=== PATIENT | female | born 2000 | race Caucasian/White ===

== ENCOUNTER → 2020-08-29 09:08 | Outpatient (BNVA) | payer OTHER, SELFPAY | PROVIDERS: Visit Provider Advanced Practice Midwife | DX: Z34.80 Encounter for supervision of other normal pregnancy, unspecified trimester (principal) | CPT/HCPCS: 99211 ==

== ENCOUNTER 2020-09-06 14:39 | Emergency (ER) | payer OTHER, SELFPAY ==
[2020-09-06 14:52] VITALS: BP 125/59; PULSE 88; RESP 16; TEMP 37.5; O2SAT 98; BMI 38.3
[2020-09-06 14:56] VITALS: BP 125/59; PULSE 85; RESP 16; TEMP 37.5; O2SAT 97
--- NOTE | 2020-09-06 15:00 | US_ITS ---
EXAMINATION: OBSTETRIC ULTRASOUND - FIRST TRIMESTER CLINICAL INFORMATION: Vaginal bleeding. 9 weeks by last menstrual period. COMPARISON: None TECHNIQUE: Transabdominal and transvaginal imaging of the uterus was performed utilizing mora scale and color doppler technique, with m-mode imaging. FINDINGS: There is an intrauterine gestational sac present with a mean sac diameter of 1.51 cm corresponding to gestational age of 6 weeks, 3 days. A yolk sac is present within the gestational sac, however no pole is yet identified. No cardiac activity. No perigestational hemorrhage. Ovaries normal in size and appearance measuring 2.3 x 2.3 x 3.1 cm on the right and 2.0 x 1.6 x 1.8 cm on the left. No free fluid. US/US OB transvaginal IMPRESSION: * Intrauterine gestational sac present with mean sac diameter corresponding to a gestational age of 6 weeks, 3 days. At this size, a pole should be detected, and the findings are suspicious for failure but not definitive. Correlate with hCG levels and short interval follow-up. * No perigestational hemorrhage.
--- NOTE | 2020-09-06 15:00 | US_ITS ---
EXAMINATION: OBSTETRIC ULTRASOUND - FIRST TRIMESTER CLINICAL INFORMATION: Vaginal bleeding. 9 weeks by last menstrual period. COMPARISON: None TECHNIQUE: Transabdominal and transvaginal imaging of the uterus was performed utilizing mora scale and color doppler technique, with m-mode imaging. FINDINGS: There is an intrauterine gestational sac present with a mean sac diameter of 1.51 cm corresponding to gestational age of 6 weeks, 3 days. A yolk sac is present within the gestational sac, however no pole is yet identified. No cardiac activity. No perigestational hemorrhage. Ovaries normal in size and appearance measuring 2.3 x 2.3 x 3.1 cm on the right and 2.0 x 1.6 x 1.8 cm on the left. No free fluid. US/US OB <= 14 weeks fetus IMPRESSION: * Intrauterine gestational sac present with mean sac diameter corresponding to a gestational age of 6 weeks, 3 days. At this size, a pole should be detected, and the findings are suspicious for failure but not definitive. Correlate with hCG levels and short interval follow-up. * No perigestational hemorrhage.
--- NOTE | 2020-09-06 15:14 | ED.PREGNANCY ---
HPI - General Chief complaint: Vaginal Bleeding Stated complaint: multiple symptoms Time Seen by Provider: 09/06/20 14:59 Source: patient Mode of arrival: ambulatory Limitations: no limitations History of Present Illness HPI Narrative: 20 y/o female who is 9 weeks gestation presenting with painless vaginal bleeding that started yesterday. She states it started as only mild pink blood on the toilet paper when she wipes but this morning it progressed to a few small clots. She states she had the same presentation with her previous at 3 months gestation and it self-resolved. She has been getting care. No history of miscarriage or . No pelvic pain, abdominal pain, cramping, urinary symptoms or vaginal discharge. MD Complaint: vaginal bleeding Onset (ago): day(s) (1) Pain Consistency: intermittent Severity: mild Associated symptoms: nausea, vomiting and vaginal bleeding Vaginal discharge: none Vaginal bleeding: light and clots Patient : Yes Expected Date of Delivery: 04/11/21 OB History - Current : no complications OB History - Previous Pregnancies: other (bleeding in the 1st trimester) care: followed by OB Related Data : 3 Para: 2 Total number of abortions (spontaneous and elective): 0 Previous Rx's Medication Instructions Recorded vitamin with calcium 1 tab PO DAILY #30 tab 08/29/20 no.72-iron 27 mg-folic acid 1 mg tablet Allergies Allergy/AdvReac Type Severity Reaction Status Date / Time No Known Allergies Allergy Verified 09/06/20 14:52 [No Known Allergies*] Review of Systems Review of Systems: Constitutional: No Fever, No Chills ENT/Mouth: + sore throat, No Rhinorrhea Eyes: No Eye Pain, No Swelling, No Redness Cardiovascular: No Chest Pain, No SOB, No Orthopnea, No Edema Respiratory: No Cough, No Sputum, No Wheezing, No dyspnea Gastrointestinal: + Nausea,+ Vomiting, No Diarrhea, No abdominal Pain, No Hematochezia, No Melena Genitourinary: No Dysuria, No Urinary Frequency, No Hematuria, +vaginal bleeding Musculoskeletal: No joint pain, No Myalgias Skin: No Skin Lesions, No rash Heme/Lymph: No Bruising, No Lymphadenopathy Endocrine: No Polyuria, No Polydipsia PMFSH Past Medical History Attestation statement: The following information was validated with the patient. Medical History No known health problems : 3 Para: 2 Total number of abortions (spontaneous and elective): 0 Social History Social History Smoking Status: Never smoker Use of substances other than those prescribed or required for medical reasons: No Advance Directives: No Advance Directives Information Provided: Yes Physical Exam Vital Signs: Vital Signs: Last Vital Signs Temp 99.5 F 09/06/20 14:56 Pulse 85 09/06/20 14:56 Resp 16 09/06/20 14:56 BP 125/59 L 09/06/20 14:56 Pulse Ox 97 09/06/20 14:56 Body Mass Index 38.3 Appearance: Alert. Oriented X3. No acute distress. Eyes: Pupils equal, round and reactive to light. ENT: Pharynx normal. Neck: Normal inspection. Neck supple. CVS: Normal heart rate and rhythm. Pulses normal. Respiratory: No respiratory distress. Breath sounds normal. Abdomen: Soft and nontender. +BS x4 /Pelvic exam: small amount of blood in vaginal vault, cervix is closed. no vaginal discharge. Skin: Skin warm and dry. Normal skin color. Normal skin turgor. No rashes. Extremities: No lower extremity edema. Neuro: Oriented X 3. No motor deficit. No sensory deficit. Course Course Course Narrative: 20 y/o female presenting with painless 1st trimester bleeding. Will get OB U/S and labs. Suspect normal 1st trimester bleeding, possible impending miscarriage, placentia previa. Will monitor closely. Pateint reports sore throat with COVID -19 exposure a few days ago. Will get COVID and Strep throat swabs as well. Reevaluation(s) Reevaluation #1: Minimal bleeding while in the ER. Pelvic U/S showed gestational sac corresponding to 6 weeks 3 days - no pole was detected which could be suspicious for failure. HCG level is 14,000 which corresponds with the gestational age of 6 weeks. Results were discussed with the patient and the need for close follow up with her COMPUTATIONAL GENETICIST. She agrees to call for repeat blood work and assessment Tuesday morning. Instructed to return if she develops painful bleeding. Stable for d/c. MDM - OB/Uterine Contractions Lab Data Result diagrams: 09/06/20 15:49 09/06/20 15:49 Labs: Lab Results 09/06/20 09/06/20 09/06/20 Range/Units 15:49 15:49 15:49 WBC 6.0 (4.8-10.8) X10*3/uL RBC 4.44 (4.20-5.50) X10*6/uL Hgb 11.9 L (12.0-16.0) g/dl Hct 35.9 L (37-47) % MCV 80.9 (80-98) fL MCH 26.8 L (27.0-33.0) pg MCHC 33.1 (31.0-35.0) g/dl RDW 13.5 (11.0-16.0) % Plt Count 286 (160-400) X10*3/uL MPV 10.6 (9.4-12.3) fL Immature Gran % (Auto) 0.2 (0.0-0.4) % Neut % (Auto) 60.7 (45-73) % Lymph % (Auto) 26.9 (20-40) % [place] % (Auto) 11.5 H (2-11) % Eos % (Auto) 0.5 (0-4) % Baso % (Auto) 0.2 (0-2) % Lymph # (Auto) 1.6 (1.2-4.9) X10*3/uL [place] # (Auto) 0.7 (0.1-1.2) X10*3/uL Eos # (Auto) 0.0 (0.0-0.4) X10*3/uL Baso # (Auto) 0.0 (0.0-0.2) X10*3/uL Abs Immat Gran (auto) 0.01 (0.00-0.03) X10*3/uL Absolute Neuts (auto) 3.7 (2.0-8.3) X10*3/uL Absolute Nucleated RBC 0.000 (0.0-0.012) X10*3/uL Nucleated RBC % (auto) 0.0 (0.0-0.2) /100WBC PT 12.5 (10.8-13.0) SEC INR 1.1 (0.9-1.1) APTT 36.0 (24.1-38.0) SEC Sodium 138 (135-145) mmol/L Potassium 4.1 (3.3-5.1) mmol/l Chloride 105 (96-108) mmol/L Carbon Dioxide 22 (22-29) mmol/L Anion Gap 15 (12-20) BUN 10 (9-16) mg/dL Creatinine 0.81 (0.5-1.4) mg/dL Estim Creat Clear Calc 105.6 Estimated GFR > 60 Random Glucose 77 (60-115) mg/dL Calcium 9.6 (8.4-10.2) mg/dL Beta HCG, Quant 79942 mIU/mL Urine Color Urine Appearance Urine pH (5.0-8.0) Ur Specific Mood[place] (1.005-1.025) Urine Protein (NEG-TRACE) MG/DL Urine Glucose (UA) (NEG) MG/DL Urine Ketones (NEG) MG/DL Urine Blood (NEG) Urine Nitrite (NEG) Ur Leukocyte Esterase (NEG) Urine RBC (0) /HPF Urine WBC (0-4) /HPF Ur Squamous Epith Cells /LPF Urine Bacteria /LPF Blood Type Antibody Screen 09/06/20 09/06/20 Range/Units 15:49 15:49 WBC (4.8-10.8) X10*3/uL RBC (4.20-5.50) X10*6/uL Hgb (12.0-16.0) g/dl Hct (37-47) % MCV (80-98) fL MCH (27.0-33.0) pg MCHC (31.0-35.0) g/dl RDW (11.0-16.0) % Plt Count (160-400) X10*3/uL MPV (9.4-12.3) fL Immature Gran % (Auto) (0.0-0.4) % Neut % (Auto) (45-73) % Lymph % (Auto) (20-40) % [place] % (Auto) (2-11) % Eos % (Auto) (0-4) % Baso % (Auto) (0-2) % Lymph # (Auto) (1.2-4.9) X10*3/uL [place] # (Auto) (0.1-1.2) X10*3/uL Eos # (Auto) (0.0-0.4) X10*3/uL Baso # (Auto) (0.0-0.2) X10*3/uL Abs Immat Gran (auto) (0.00-0.03) X10*3/uL Absolute Neuts (auto) (2.0-8.3) X10*3/uL Absolute Nucleated RBC (0.0-0.012) X10*3/uL Nucleated RBC % (auto) (0.0-0.2) /100WBC PT (10.8-13.0) SEC INR (0.9-1.1) APTT (24.1-38.0) SEC Sodium (135-145) mmol/L Potassium (3.3-5.1) mmol/l Chloride (96-108) mmol/L Carbon Dioxide (22-29) mmol/L Anion Gap (12-20) BUN (9-16) mg/dL Creatinine (0.5-1.4) mg/dL Estim Creat Clear Calc Estimated GFR Random Glucose (60-115) mg/dL Calcium (8.4-10.2) mg/dL Beta HCG, Quant mIU/mL Urine Color YELLOW Urine Appearance CLEAR Urine pH 5.5 (5.0-8.0) Ur Specific Mood[place] 1.020 (1.005-1.025) Urine Protein NEG (NEG-TRACE) MG/DL Urine Glucose (UA) NEG (NEG) MG/DL Urine Ketones 5 (NEG) MG/DL Urine Blood 2+ H (NEG) Urine Nitrite NEG (NEG) Ur Leukocyte Esterase TRACE H (NEG) Urine RBC 1-4 (0) /HPF Urine WBC 1-4 (0-4) /HPF Ur Squamous Epith Cells TRACE /LPF Urine Bacteria 2+ /LPF Blood Type A Positive Antibody Screen NEGATIVE Critical Care Time Critical Care Time Critical Care Time: No Discharge Plan Discharge Clinical Impression: First trimester bleeding Patient Disposition: Home, Self-Care Instructions: First Trimester (ED) Additional Instructions: You were tested for COVID-19 today. We will call you with the results in 2-4 days. Your ultrasound today showed a gestational sac estimated at 6 weeks & 3 days. The pole or thickening of the yolk sac was not able to be seen. This can a normal occurrence, however it can also be indicative of failure. You need to follow up with your COMPUTATIONAL GENETICIST early next week to get repeat blood work and trend your hormone level. If you develop significant increase in bleeding ot painful bleeding come back to the ER for further evaluation. Prescriptions: No Action Vitamin Plus Low Iron 27 mg iron- 1 mg tablet 1 tab PO DAILY Qty: 30 RF: 11
[2020-09-06 16:09] LABS: MANUAL DIFF FLAG NO
[2020-09-06 16:13] LABS: Basophils Percent Auto 0.2 % (0-2); Eosinophils Percent Auto 0.5 % (0-4); Hematocrit 35.9 % (37-47); Hemoglobin 11.9 g/dl (12.0-16.0); Imm Gran Abs Auto 0.01 X10*3/uL (0.00-0.03); Imm Gran Pct Auto 0.2 % (0.0-0.4); Lymphocytes Absolute Auto 1.6 X10*3/uL (1.2-4.9); Lymphocytes Percent Auto 26.9 % (20-40); Mean Corpuscular HGB Conc 33.1 g/dl (31.0-35.0); Mean Corpuscular Hemoglobin 26.8 pg (27.0-33.0); Mean Corpuscular Volume 80.9 fL (80-98); Mean Platelet Volume 10.6 fL (9.4-12.3); Monocytes Absolute Auto 0.7 X10*3/uL (0.1-1.2); Monocytes Percent Auto 11.5 % (2-11); Neutrophils Absolute Auto 3.7 X10*3/uL (2.0-8.3); Neutrophils Percent Auto 60.7 % (45-73); Platelet Count 286 X10*3/uL (160-400); Red Blood Count 4.44 X10*6/uL (4.20-5.50); Red Cell Distribution Width 13.5 % (11.0-16.0)
[2020-09-06 16:15] LABS: Glucose Urine UA NEG (NEG); Leukocyte Esterase Urine TRACE (NEG); Nitrite Urine NEG (NEG); PH 5.5 (5.0-8.0); Urine Blood 2+ (NEG); Urine Ketones 5 MG/DL (NEG); Urine Protein NEG (NEG-TRACE)
[2020-09-06 16:19] LABS: Appearance Urine CLEAR; Color Urine YELLOW
--- NOTE | 2020-09-06 16:31 | PC.NURSE ---
pt triaged c/o vaginal bleeding, spotting since yesterday, small dime sized clots this AM. Third , at 9 wks receiving care at [facility]. Reports experiencing vaginal bleeding with her second pregancy. Also c/o sore throat, with recent exposure by family friend of TARA 19. 18G in L ac, all labs drawn, all specimens obtained. This RN chaperoned for brief pelvic exam at bedside. Ultrasound expected to bedside.
[2020-09-06 16:32] LABS: INTERNATIONAL NORM RATIO 1.1 (0.9-1.1); Prothrombin Time 12.5 SEC (10.8-13.0)
[2020-09-06 16:44] LABS: Bacteria Urine 2+ /LPF; Squamous Epithelial Cell Urine TRACE /LPF
[2020-09-06 16:53] LABS: Anion Gap 15 (12-20); Blood Urea Nitrogen 10 mg/dL (9-16); Calcium 9.6 mg/dL (8.4-10.2); Carbon Dioxide 22 mmol/L (22-29); Chloride 105 mmol/L (96-108); Creatinine Clr Calc Pharmacy 105.6; Estimated Glomerular Filt Rate > 60; Glucose Random 77 mg/dL (60-115); Potassium 4.1 mmol/l (3.3-5.1); Sodium 138 mmol/L (135-145)
[2020-09-06 17:00] LABS: HCG Quantitative 14777 mIU/mL
--- NOTE | 2020-09-06 17:00 | PC.NURSE ---
ULTRASOUND TO BEDSIDE
[2020-09-06 18:54] VITALS: BP 114/63; PULSE 80; RESP 16; TEMP 37.2; O2SAT 100
== END 2020-09-06 19:07 | disposition home or self-care (01) ==
PROVIDERS: Physician Assistant; Emergency Provider Emergency Medicine
DX: O20.9 Hemorrhage in early pregnancy, unspecified (principal); Z3A.09 9 weeks gestation of pregnancy; Z20.828 Contact with and (suspected) exposure to other viral communicable diseases
CPT/HCPCS: 36415; 76801; 76817; 80048; 81001; 84702; 85025; 85610; 85730; 86850; 86900; 86901; 87071; 87086; 87088; 87147; 87186; 87880; 99284; U0003